=== PATIENT | female | born 1990 | race Caucasian/White ===

== ENCOUNTER 2021-06-03 06:01 | Emergency (ER) | payer BC, SELFPAY ==
[2021-06-03 06:07] VITALS: BP 140/74; PULSE 95; RESP 20; TEMP 36.3; O2SAT 98
[2021-06-03 06:28] LABS: Basophils Percent Auto 0.1 % (0.2-1.2); Eosinophils Absolute Auto 0.1 K/mm3 (0-0.3); Eosinophils Percent Auto 1.4 % (0-4.4); Hematocrit 35.4 % (37.0-47.0); Hemoglobin 12.1 g/dL (12.0-15.0); Immature Granulocyte Absolute 0.04 K/mm3 (0.00-0.031); Immature Granulocyte Percent A 0.5 % (0-0.5); Lymphocytes Absolute Auto 0.45 K/mm3 (0.9-3.2); Lymphocytes Percent Auto 5.6 % (18.3-44.2); Mean Corpuscular HGB Conc 34.2 g/dl (32-36); Mean Corpuscular Hemoglobin 30.7 pg (26-34); Mean Corpuscular Volume 89.8 fl (80-100); Mean Platelet Volume 10.7 fl (7.4-10.4); Monocytes Absolute Auto 0.7 K/mm3 (0.1-0.6); Monocytes Percent Auto 8.2 % (2.6-8.5); Neutrophils Absolute Auto 6.8 K/mm3 (1.3-6.7); Neutrophils Percent Auto 84.2 % (45.5-73.1); Platelet Count Result 216 k/mm3 (150-375); Red Blood Count 3.94 M/mm3 (4.2-5.4); Red Cell Distribution Width 12.6 % (11.5-14.5); White Blood Count 8.1 K/mm3 (4.5-10.0)
[2021-06-03 06:33] LABS: Add Urine Microscopic? YES; Appearance Urine Clear (Clear); Bilirubin Urine Negative (Negative); Blood Urine Negative (Negative); Color Urine Yellow (Yellow); Glucose Urine UA Negative (Negative); Ketones Urine 1+ mg/dL (Negative); Leukocyte Esterase Ur Negative LEU/UL (Negative); Mucus Urine Rare /lpf; Nitrate Urine Negative (Negative); Protein Urine Negative (Negative); Specific Grav Ur 1.024 (1.001-1.035); Squamous Epithelial Cell Urine Many /hpf (Few); WBC Urine 0-3 /hpf
[2021-06-03 06:36] LABS: Alanine Aminotransferase 30 U/L (4-35); Albumin Level 3.9 g/dL (3.5-5.1); Alkaline Phosphatase 76 U/L (38-126); Anion Gap 8 mmol/L (8-16); Aspartate Amino Transferase 34 U/L (14-36); Bilirubin,Total 0.3 mg/dL (0.2-1.3); Blood Urea Nitrogen 6 mg/dL (7-17); Calcium 8.8 mg/dL (8.4-10.2); Carbon Dioxide 22 mmol/L (22-30); Chloride 102 mmol/L (98-107); Estimated Glomerular Filt Rate > 60; Glucose 109 mg/dL (65-110); Lipase 72 U/L (23-300); Potassium 3.7 mmol/L (3.4-5.0); Sodium 132 mmol/L (137-145)
[2021-06-03] MEDS: SODIUM CHLORIDE 0.9% IV 1,000 ML 999 ML IV CONT (07:46)
--- NOTE | 2021-06-03 07:48 | ED.NAVMDI ---
HPI - Nausea/Vomiting/Diarrhea General Chief complaint: Nausea/Vomiting/Diarrhea Stated complaint: n/v/d, headache, fever Time Seen by Provider: 06/03/21 06:25 History of Present Illness HPI Narrative: Patient is a 31-year-old female who presents to the ER with multiple complaints. She is 17 weeks and has had a headache since yesterday. Typically takes ibuprofen but did not due to the . She has tried no pain medication. She does report that she had a fever last night of 100.9 ?F. She has had some nausea and vomiting. No abdominal pain or leakage of fluid or vaginal bleeding. She has felt the baby move. She was recently diagnosed with gestational diabetes. No known sick contacts. Vaccinated against COVID. No loss of taste or smell. Denies sinus congestion or sore throat or postnasal drip. Mild cough Related Data Home Medications Medication Instructions Recorded Confirmed escitalopram oxalate 10 mg tablet 10 mg PO DAILY 06/08/20 05/30/21 azelaic acid 15 % topical gel 1 applic TOPICAL BID 12/22/20 12/22/20 aegnrnvo-hqe-Ji-FA tablet PO 06/03/21 [] Allergies Allergy/AdvReac Type Severity Reaction Status Date / Time Penicillins Allergy Unknown Unknown Verified 06/03/21 06:20 Review of Systems Review of Systems: All systems reviewed & are unremarkable except as noted in HPI and below Constitutional: Constitutional: Denies chills, Reports fatigue and Reports fever(s) ENT: Denies nasal congestion and Denies sore throat Respiratory: Respiratory: Reports cough, Denies dyspnea and Denies wheezing Gastrointestinal: Gastrointestinal: Denies abdominal pain, Denies diarrhea, Reports nausea and Reports vomiting Genitourinary: Genitourinary: Denies abnormal vaginal bleeding, Reports nocturia (Due to ), Denies dysuria and Denies vaginal discharge [facility] Past Medical History Medical History Anxiety Depression Obesity Sleep apnea Coijm-Turcqmzli-Fvjib (WPW) pattern Surgical History Surgical History History of cardiac radiofrequency ablation (RFA) History of colposcopy (~01/30/17) BENIGN ENDOCERVERIVAL TISSUE History of colposcopy (~01/18/16) LGSIL MILD DYPLASIA _ HPV - BENGIN History of gynecological procedure MIRENA IUD INSERTION 07/05/2015 Hx of gynecological procedure (~12/07/19) MIRENA IUD REMOVAL Family History Family History Father Family history of malignant neoplasm of bone Anxiety Depression Mother Diabetes mellitus Hypertension Obesity Grandparent Heart disease Lung cancer Sibling Anxiety Obesity Social History Social History (Updated 05/30/21 @ 09:09 by Geri Sánchez MA) Smoking status: Never smoker Alcohol intake: never Substance use: never 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 HEAD: Normocephalic, atraumatic. CHEST: Clear to auscultation. No respiratory distress. HEART: Regular rate and rhythm. Normal peripheral pulses. ABDOMEN: Soft, nontender, nondistended. EXTREMITIES: Normal range of motion. No edema. SKIN: Warm, dry, no rash. NEURO: Alert and oriented x3. PSYCH: Normal mood and affect. Course Course Emergency Course: Labs unremarkable. Headache and nausea resolved with Tylenol and Phenergan. Discharge home with supportive care. COVID pending Vital Signs Vital signs: Vital Signs Temperature 97.4 F L 06/03/21 06:07 Pulse Rate 95 06/03/21 06:07 Respiratory Rate 20 06/03/21 06:07 Blood Pressure 140/74 06/03/21 06:07 Pulse Oximetry 98 06/03/21 06:07 Temperature 97.4 F L 06/03/21 06:07 Pul
[2021-06-03] MEDS: PROMETHAZINE HCL 25 MG/ML AMPUL 12.5 MG IV PUSH (07:49)
[2021-06-03 10:35] VITALS: PULSE 86; RESP 19; O2SAT 99
[2021-06-03 20:23] LABS: SARS-CoV-2 RNA PCR Positive
== END 2021-06-03 10:40 | disposition home or self-care (01) ==
PROVIDERS: Emergency Medicine; Emergency Provider Emergency Medicine; PCP Family Medicine
DX: O98.512 Other viral diseases complicating pregnancy, second trimester (principal); U07.1 COVID-19; R51.9 Headache, unspecified; O24.419 Gestational diabetes mellitus in pregnancy, unspecified control; O99.342 Other mental disorders complicating pregnancy, second trimester; F41.9 Anxiety disorder, unspecified; F32.A Depression, unspecified; O99.212 Obesity complicating pregnancy, second trimester; E66.9 Obesity, unspecified; O99.352 Diseases of the nervous system complicating pregnancy, second trimester; G47.30 Sleep apnea, unspecified; Z3A.17 17 weeks gestation of pregnancy
CPT/HCPCS: 36415; 80053; 81001; 83690; 85025; 96361; 96374; 96375; 99284; C9803; J0131; J2550; J7030; U0003; U0005

== ENCOUNTER 2021-08-15 12:52 | Outpatient (CLI) | payer BC, SELFPAY ==
[2021-08-15 13:16] VITALS: BP 108/56; PULSE 81
[2021-08-15 13:31] VITALS: BP 118/70; PULSE 72
[2021-08-15 13:39] LABS: Basophils Percent Auto 0.3 % (0.2-1.2); Eosinophils Absolute Auto 0.3 K/mm3 (0-0.3); Hematocrit 35.2 % (37.0-47.0); Hemoglobin 11.5 g/dL (12.0-15.0); Immature Granulocyte Absolute 0.04 K/mm3 (0.00-0.031); Immature Granulocyte Percent A 0.4 % (0-0.5); Lymphocytes Absolute Auto 1.97 K/mm3 (0.9-3.2); Lymphocytes Percent Auto 18.9 % (18.3-44.2); Mean Corpuscular HGB Conc 32.7 g/dl (32-36); Mean Corpuscular Hemoglobin 29.6 pg (26-34); Mean Corpuscular Volume 90.5 fl (80-100); Mean Platelet Volume 11.5 fl (7.4-10.4); Monocytes Absolute Auto 0.7 K/mm3 (0.1-0.6); Monocytes Percent Auto 6.9 % (2.6-8.5); Neutrophils Absolute Auto 7.3 K/mm3 (1.3-6.7); Neutrophils Percent Auto 70.5 % (45.5-73.1); Platelet Count Result 253 k/mm3 (150-375); Red Blood Count 3.89 M/mm3 (4.2-5.4); Red Cell Distribution Width 12.9 % (11.5-14.5); White Blood Count 10.4 K/mm3 (4.5-10.0)
[2021-08-15 13:45] VITALS: BP 113/67; PULSE 80
[2021-08-15 13:50] LABS: Add Urine Microscopic? YES; Alanine Aminotransferase 17 U/L (4-35); Albumin Level 3.3 g/dL (3.5-5.1); Alkaline Phosphatase 92 U/L (38-126); Anion Gap 5 mmol/L (8-16); Appearance Urine Cloudy (Clear); Aspartate Amino Transferase 18 U/L (14-36); Bacteria Urine Trace /hpf; Bilirubin Urine Negative (Negative); Bilirubin,Total < 0.1 mg/dL (0.2-1.3); Blood Urea Nitrogen 8 mg/dL (7-17); Blood Urine 2+ (Negative); Calcium 8.5 mg/dL (8.4-10.2); Carbon Dioxide 23 mmol/L (22-30); Chloride 105 mmol/L (98-107); Color Urine Yellow (Yellow); Estimated Glomerular Filt Rate > 60; Glucose 116 mg/dL (65-110); Glucose Urine UA Negative (Negative); Ketones Urine Negative (Negative); Leukocyte Esterase Ur Negative LEU/UL (NEGATIVE); Mucus Urine Rare /lpf; Nitrate Urine Negative (Negative); Potassium 3.5 mmol/L (3.4-5.0); Protein Urine Negative (Negative); RBC Urine >75 /hpf (0-2); Sodium 133 mmol/L (137-145); Specific Grav Ur 1.013 (1.001-1.035); Squamous Epithelial Cell Urine Many /hpf (Few); Uric Acid 3.3 mg/dL (2.5-7.5); Urobilinogen Urine Negative mg/dL (<2.0); WBC Urine 0-3 /hpf (0-3)
[2021-08-15 13:52] LABS: Creatinine Urine 76.8 mg/dL; Total Protein Urine Random 15 mg/dL
[2021-08-15 14:00] VITALS: BP 105/64; PULSE 70
== END 2021-08-15 14:02 | disposition home or self-care (01) ==
LOC: ANHOBOP 12:57 → ANHLDR 12:58
PROVIDERS: PCP Family Medicine; Visit Provider Obstetrics & Gynecology
DX: O13.9 Gestational [pregnancy-induced] hypertension without significant proteinuria, unspecified trimester (principal); Z3A.00 Weeks of gestation of pregnancy not specified
CPT/HCPCS: 36415; 59025; 80053; 81001; 82570; 84156; 84550; 85025; 87086; 99199

== ENCOUNTER 2021-09-16 11:18 | Outpatient (RCR) | payer BC, SELFPAY ==
[2021-09-16 12:09] VITALS: BP 119/65; PULSE 77
== END 2021-10-20 10:16 | disposition home or self-care (01) ==
LOC: ANHOBOP 11:18
PROVIDERS: PCP Family Medicine; Visit Provider Obstetrics & Gynecology
DX: O24.419 Gestational diabetes mellitus in pregnancy, unspecified control (principal); Z3A.32 32 weeks gestation of pregnancy
CPT/HCPCS: 59025

== ENCOUNTER 2021-10-18 13:59 | Inpatient (IN) | payer BC, SELFPAY ==
[2021-10-18] VITALS (12 sets, daily range): BP systolic 116–134; BP diastolic 54–76; PULSE 68–80; TEMP 36.6; BMI 43.2
--- NOTE | 2021-10-18 13:59 | LDADM ---
This patient, Maria Teresa Petty, was admitted to Labor/Delivery/Recovery 103 on 10/18/21 at 13:59. Plans for labor, pain management and were discussed with patient. Patient/family oriented to hospital policies and general routines including ID bracelet, bed and alarms, visiting hours, pain management, procedures, bathroom and other care routines, personal items, smoking policy, room service/diet and guest tray routines, security routines, and visiting hours. Patient/Family are encouraged to report perceived risks to care and to ask questions if they do not understand what they are told or what they should do. See OBIX for further documentation.
--- OUTSIDE RECORDS SUMMARY | 2021-10-18 14:09 | XMS_ITS ---
:1990 Author Care Team Providers Name Role Phone CLAUDIA DAS Primary Care Provider [phone] Allergies Code Code System Name Reaction Severity Status Onset Penicillins Rash ? Active ? Medications Name Status Start Date Stop Date ? ? alprazolam 0.25 mg tablet Completed ? 2019 azelaic acid 15 % topical gel Active ? No t available azithromycin 250 mg tablet Unknown ? Not a vailable buspirone 5 mg tablet Active ? Not availa ble ciprofloxacin 500 mg tablet Unknown ? Not available citalopram 10 mg tablet Completed ? 12/26/19 17 clomiphene citrate 50 mg tablet Completed ? 03/20/2021 Diclegis 10 mg-10 mg tablet,delayed release Completed ? 12/25/2016 TAKE 1 TABLET BY MOUTH EVERY MORNING, 1 TABLET IN THE AFTERNOON, AND 2 TABLETS AT BEDTIME doxycycline hyclate 100 mg tablet Completed ? 03/20/2021 escitalopram 10 mg tablet Active ? Not av ailable famotidine 20 mg tablet Unknown ? Not avai lable hydrocodone 5 mg-acetaminophen 325 mg tablet Unknown ? Not available ibuprofen 400 mg tablet Unknown ? Not avai lable Macrobid 100 mg capsule Completed ? 01/31/20 17 Take 1 capsule every 12 hours by oral route for 5 days. Mirena 20 mcg/24 hours (7 yrs) 52 mg intrauterine device Complet ed ? 12/07/2019 Take 1 device by intrauterine route. montelukast 10 mg tablet Completed ? 017 ondansetron 4 mg disintegrating tablet Unknown ? Not available ondansetron HCl 4 mg tablet Unknown ? Not available phenazopyridine 200 mg tablet Unknown ? No t available prazosin 1 mg capsule Completed ? 03/20/2021 prednisone 20 mg tablet Unknown ? Not avai lable TAKE 3 TABLETS BY MOUTH DAILY
[2021-10-18 15:17] LABS: Basophils Percent Auto 0.3 % (0.2-1.2); Eosinophils Absolute Auto 0.3 K/mm3 (0-0.3); Eosinophils Percent Auto 2.4 % (0-4.4); Hematocrit 34.5 % (37.0-47.0); Hemoglobin 11.3 g/dL (12.0-15.0); Immature Granulocyte Absolute 0.06 K/mm3 (0.00-0.031); Immature Granulocyte Percent A 0.6 % (0-0.5); Lymphocytes Absolute Auto 2.05 K/mm3 (0.9-3.2); Lymphocytes Percent Auto 18.8 % (18.3-44.2); Mean Corpuscular HGB Conc 32.8 g/dl (32-36); Mean Corpuscular Hemoglobin 28.4 pg (26-34); Mean Corpuscular Volume 86.7 fl (80-100); Mean Platelet Volume 11.7 fl (7.4-10.4); Monocytes Absolute Auto 0.8 K/mm3 (0.1-0.6); Monocytes Percent Auto 7.3 % (2.6-8.5); Neutrophils Absolute Auto 7.7 K/mm3 (1.3-6.7); Neutrophils Percent Auto 70.6 % (45.5-73.1); Platelet Count Result 280 k/mm3 (150-375); Red Blood Count 3.98 M/mm3 (4.2-5.4); Red Cell Distribution Width 13.6 % (11.5-14.5); White Blood Count 10.9 K/mm3 (4.5-10.0)
[2021-10-18 15:29] LABS: Alanine Aminotransferase 13 U/L (6-35); Albumin Level 3.3 g/dL (3.5-5.1); Alkaline Phosphatase 172 U/L (38-126); Anion Gap 3 mmol/L (8-16); Aspartate Amino Transferase 19 U/L (14-36); Bilirubin,Total 0.1 mg/dL (0.2-1.3); Blood Urea Nitrogen 4 mg/dL (7-17); Calcium 8.3 mg/dL (8.4-10.2); Carbon Dioxide 25 mmol/L (22-30); Chloride 107 mmol/L (98-107); Estimated CRCL calculation 164 ml/min; Estimated Glomerular Filt Rate > 60; Glucose 81 mg/dL (65-110); Potassium 3.1 mmol/L (3.4-5.0); Sodium 135 mmol/L (137-145); Uric Acid 4.3 mg/dL (2.5-7.5)
[2021-10-18] MEDS: DINOPROSTONE 10 MG VAG INSERT VAGINAL (17:07)
[2021-10-18] MEDS: INSULIN ASPART (*BKC) 100 UNITS/ML SUB-Q (17:12)
--- NOTE | 2021-10-18 18:34 | PM.IMHP ---
H&P: HPI History of Present Illness Date/Time: 10/18/21 18:34 Chief Complaint: elevated blood pressures Narrative: Maria Teresa is a 31yo @ 37.0wks (AUDREY 11/08/21) who presented to L&D per [facility]'s instructions for IOL. She has a questionable h/o CHTN vs GHTN; but over the last week, her BP's have been increasing to moderate to severe range; has had some RUQ pain as well. She also has uncontrolled GDM (likely pregestational DM) and is on high levels of insulin even though she follows a strict diet. She has been undergoing twice weekly testing. She reports good movements. No ctx, vb, or LOF. Review of Systems Review of Systems: All systems reviewed & are unremarkable except as noted in HPI and below (HPI) [facility] Past Medical History Medical History Anxiety Depression Lactating mother Obesity Sleep apnea Upvrm-Yoztanrap-Nsdrd (WPW) pattern Surgical History Surgical History History of cardiac radiofrequency ablation (RFA) History of colposcopy (~01/30/17) BENIGN ENDOCERVERIVAL TISSUE History of colposcopy (~01/18/16) LGSIL MILD DYPLASIA _ HPV - BENGIN History of gynecological procedure MIRENA IUD INSERTION 07/05/2015 Hx of gynecological procedure (~12/07/19) MIRENA IUD REMOVAL Family History Family History Father Family history of malignant neoplasm of bone Anxiety Depression Mother Diabetes mellitus Hypertension Obesity Grandparent Heart disease Lung cancer Sibling Anxiety Obesity Social History Social History Smoking status: Never smoker Alcohol intake: never Substance use: never 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 Gender identity (if verbalized by the patient): Female Sexual Orientation (if Verbalized by the Patient): Straight or Heterosexual Spiritual care concerns: No Meds Home Medications and Allergies Home Medications Medication Instructions Recorded Confirmed Type azelaic acid 15 % topical gel 1 applic topical BID 12/22/20 10/18/21 History khmbgvin-pkm-Ml-FA 1 mg 1 tablet PO DAILY 06/03/21 10/18/21 History tablet aspirin 81 mg tablet,delayed 162 mg PO ONCE 06/23/21 10/18/21 History release (Adult Aspirin Regimen) insulin detemir U-100 100 unit/mL 22 unit subcut QAM 07/31/21 10/18/21 History (3 mL) subcutaneous pen insulin aspar prot-insulin aspart 4 unit subcut DIRECTED 09/25/21 10/18/21 History 100 unit/mL (70-30) subcutaneous pen (Novolog Mix 70-30FlexPen U-100) buspirone 5 mg tablet 5 mg PO BID 10/18/21 10/18/21 History escitalopram oxalate 10 mg tablet 10 mg PO DAILY 10/18/21 10/18/21 History insulin detemir U-100 100 unit/mL 86 unit subcut QHS 10/18/21 10/18/21 History (3 mL) subcutaneous pen (Levemir FlexTouch U-100 Insulin) Allergies Allergy/AdvReac Type Severity Reaction Status Date / Time Penicillins Allergy Unknown Unknown Verified 10/11/21 10:28 Vital Signs Vital Signs - 24 hr 10/18/21 15:09 10/18/21 15:33 10/18/21 17:15 Pulse Rate 71 68 73 Blood Pressure 122/76 130/71 131/54 L 10/18/21 17:16 10/18/21 17:30 10/18/21 17:46 Pulse Rate 72 74 80 Blood Pressure 120/71 130/69 116/59 L 10/18/21 18:00 10/18/21 18:15 10/18/21 18:30 Pulse Rate 71 74 69 Blood Pressure 127/75 126/71 124/70 Exam Const: General: cooperative, comfortable and no acute distress Resp: Effort & Inspection: normal respiratory effort Cardio: Rate: regular rate GI: GI Palp: Yes Soft to palpation : Other: FHT's: 120's/ mod giorgio/ + accels/ no decels - cat 1 TOCO: no ctx's Cervix: 1/thick/high Membranes: intact Presentation: cephalic Neuro: General: patient oriented x3 H&P: Results Labs Labs: Short CBC 10/18/21 Range/Units 15:
[2021-10-18 21:08] LABS: Glucose Point of Care 127 mg/dl (65-105)
[2021-10-18] MEDS: INSULIN GLARGINE (*BKC) 100 UNITS/ML 86 UNITS SUB-Q (22:05)
[2021-10-19] VITALS (67 sets, daily range): BP systolic 100–143; BP diastolic 57–96; PULSE 65–95; RESP 18; TEMP 36.2–37.2; O2SAT 89–100
[2021-10-19 01:15] LABS: Glucose Point of Care 81 mg/dl (65-105)
[2021-10-19 05:08] LABS: Glucose Point of Care 87 mg/dl (65-105)
[2021-10-19] MEDS: OXYTOCIN 30 UNITS/NS 500 ML 30 UNITS/500 ML BAG IV CONT (05:37)
[2021-10-19] MEDS: LACTATED RINGERS 1,000 ML 125 ML IV CONT ×2 (05:37→07:55)
--- NOTE | 2021-10-19 06:16 | WPDANESEPP ---
Anes - Eval Pre Procedure Procedure: labor epidural Date/Time: 10/19/21 06:16 Surgeon: stephanie Preop Diagnosis: pain during labor Pre Op Diagnosis: IOL Patient Data Age: 31 Gender: F Height: 1.73 m Weight: 129 kg Last Vital Signs Temp 36.2 C L 10/19/21 03:15 Pulse 85 10/19/21 06:16 BP 134/81 10/19/21 06:16 O2 Del Method Room Air 10/18/21 22:00 Allergies Allergy/AdvReac Type Severity Reaction Status Date / Time Penicillins Allergy Unknown Unknown Verified 10/11/21 10:28 Home Medications Medication Instructions Recorded Confirmed Type azelaic acid 15 % topical gel 1 applic topical BID 12/22/20 10/18/21 History xxmypwce-jfu-Zw-FA 1 mg 1 tablet PO DAILY 06/03/21 10/18/21 History tablet aspirin 81 mg tablet,delayed 162 mg PO ONCE 06/23/21 10/18/21 History release (Adult Aspirin Regimen) insulin detemir U-100 100 unit/mL 22 unit subcut QAM 07/31/21 10/18/21 History (3 mL) subcutaneous pen insulin aspar prot-insulin aspart 4 unit subcut DIRECTED 09/25/21 10/18/21 History 100 unit/mL (70-30) subcutaneous pen (Novolog Mix 70-30FlexPen U-100) buspirone 5 mg tablet 5 mg PO BID 10/18/21 10/18/21 History escitalopram oxalate 10 mg tablet 10 mg PO DAILY 10/18/21 10/18/21 History insulin detemir U-100 100 unit/mL 86 unit subcut QHS 10/18/21 10/18/21 History (3 mL) subcutaneous pen (Levemir FlexTouch U-100 Insulin) Laboratory Tests 10/18/21 10/18/21 10/18/21 15:01 15:01 15:01 WBC 10.9 K/mm3 H K/mm3 (4.5-10.0) RBC 3.98 M/mm3 L M/mm3 (4.2-5.4) Hgb 11.3 g/dL L g/dL (12.0-15.0) Hct 34.5 % L % (37.0-47.0) MCV 86.7 fl fl (80-100) MCH 28.4 pg pg (26-34) MCHC 32.8 g/dl g/dl (32-36) RDW 13.6 % % (11.5-14.5) Plt Count 280 k/mm3 k/mm3 (150-375) MPV 11.7 fl H fl (7.4-10.4) Immature Gran % (Auto) 0.6 % H % (0-0.5) Neut % (Auto) 70.6 % % (45.5-73.1) Lymph % (Auto) 18.8 % % (18.3-44.2) [place] % (Auto) 7.3 % % (2.6-8.5) Eos % (Auto) 2.4 % % (0-4.4) Baso % (Auto) 0.3 % % (0.2-1.2) Lymph # (Auto) 2.05 K/mm3 K/mm3 (0.9-3.2) [place] # (Auto) 0.8 K/mm3 H K/mm3 (0.1-0.6) Eos # (Auto) 0.3 K/mm3 K/mm3 (0-0.3) Baso # (Auto) 0.0 K/mm3 K/mm3 (0.0-0.1) Abs Immat Gran (auto) 0.06 K/mm3 H K/mm3 (0.00-0.031) Absolute Neuts (auto) 7.7 K/mm3 H K/mm3 (1.3-6.7) Absolute Nucleated RBC 0.0 K/mm3 K/mm3 (0.0-0.012) Nucleated RBC % 0.0 % % (0.0-0.2) Sodium 135 mmol/L L mmol/L (137-145) Potassium 3.1 mmol/L L mmol/L (3.4-5.0) Chloride 107 mmol/L mmol/L (98-107) Carbon Dioxide 25 mmol/L mmol/L (22-30) Anion Gap 3 mmol/L L mmol/L (8-16) BUN 4 mg/dL L mg/dL (7-17) Creatinine 0.60 mg/dL L mg/dL (0.7-1.0) Estim Creat Clear Calc 164 ml/min ml/min Estimated GFR > 60 (59 - ) Glucose 81 mg/dL mg/dL (65-110) POC Capillary Glucose Uric Acid Cancelled 4.3 mg/dL mg/dL (2.5-7.5) Calcium 8.3 mg/dL L mg/dL (8.4-10.2) Total Bilirubin 0.1 mg/dL L mg/dL (0.2-1.3) AST 19 U/L U/L (14-36) ALT 13 U/L U/L (6-35) Alkaline Phosphatase 172 U/L H U/L (38-126) Total Protein 6.0 g/dL L g/dL (6.3-8.2) Albumin 3.3 g/dL L g/dL (3.5-5.1) RPR Blood Type Antibody Screen 10/18/21 10/18/21 10/18/21 15:01 15:01 21:06 WBC RBC Hgb Hct MCV MCH MCHC RDW Plt Count MPV Immature Gran % (Auto) Neut % (Auto) Lymph % (Auto) [place] % (Auto)
[2021-10-19] MEDS: ONDANSETRON INJ 4 MG/2 ML VIAL IV PUSH ×2 (07:21→13:04)
[2021-10-19 07:29] LABS: Rapid Plasma Reagin Non-Reactive (NonReactive)
[2021-10-19] MEDS: fentaNYL CITRATE INJ (*CRX) 100 MCG/2 ML VIAL 50 MCG IV PUSH (07:54)
[2021-10-19 09:23] LABS: Glucose Point of Care 91 mg/dl (65-105)
[2021-10-19 13:18] LABS: Glucose Point of Care 78 mg/dl (65-105)
--- NOTE | 2021-10-19 14:30 | P.HP_ITS ---
Obstetrics - Admit Note Admission Note: record reviewed. No pertinent additions to the history and/or any subsequent changes in the physical findings that are not consistent with the expected course of the were found. Additions to the history and/or subsequent changes in the physical findings follow. 31-year-old 2 para 1 female presents at 37 weeks from [facility] office due to elevated blood pressure and uncontrolled diabetes. For presents for induction of labor. records otherwise on the chart.
--- NOTE | 2021-10-19 14:30 | WPDHPUPDATE1 ---
History and Physical Update Update Date/Time: 10/19/21 14:30 History and Physical has been reviewed, including an updated exam of the patient. There are NO changes in the patient's condition. Risks, benefits, and alternatives have been discussed and questions answered. Patient agrees to proceed with procedure.
--- NOTE | 2021-10-19 14:31 | PM.OBPRVD ---
OB - Delivery Note Procedure Events: Chronic Hypertension and Gestational Diabetes Induction method: Per Cervidil Protocol Delivery augmentation: Rupture of Membranes and Pitocin Delivery monitor: External FHT and External Uterine Route of delivery: Episiotomy description: None Laceration Description: None Specimen: Yes Quantitative Blood Loss (ml): 300 Anesthesia type: Epidural Disposition: Floor Narrative: Patient prepped in the usual manner for this procedure. Maternal expulsive efforts readily delivered vertex on rest of baby without difficulty. Cord clamped cut placenta delivered spontaneously. Cervix vagina vulva were inspected with no lacerations or tears. Uterus was well contracted hemostatic. [place] Baby Weeks of gestation at delivery: 37 Infant gender: Female Weight (pounds): 6 Weight (ounces): 7 presentation: vertex Placenta delivery description: Spontaneous Cord Vessel Description: 3 Vessels score one minute: 8 score five minutes: 9 AMG Delivery Billing Delivery Delivery: Delivery Charge
[2021-10-19] MEDS: OXYTOCIN 30 UNITS/NS 500 ML 30 UNITS/500 ML BAG 125 UNITS IV CONT (14:54)
--- NOTE | 2021-10-19 17:28 | OBPPTRN ---
Patient transferred to post room # 292 via wheelchair. Oriented to unit, room, information board, rooming in, admission packet and security measures. Patient verbalizes understanding.
[2021-10-19] MEDS: LANOLIN (LANSINOH) 7.5 GM CREAM 1 APPLIC TOPICAL (22:44)
[2021-10-19] MEDS: busPIRone HCL 5 MG TABLET PO (22:44)
[2021-10-19] MEDS: IBUPROFEN 600 MG TABLET PO (22:45)
[2021-10-19] MEDS: ACETAMINOPHEN 325 MG TABLET 650 MG PO (22:45)
[2021-10-20 04:00] VITALS: BP 121/71; PULSE 85; RESP 18; TEMP 36.7
[2021-10-20 05:19] LABS: Hematocrit 32.3 % (37.0-47.0); Hemoglobin 10.4 g/dL (12.0-15.0)
[2021-10-20] MEDS: MULTIVIT/MIN/PREN/FOL AC/IRON TABLET 1 TAB PO (07:38)
[2021-10-20] MEDS: DOCUSATE SODIUM 100 MG CAPSULE PO (07:38)
[2021-10-20] MEDS: IBUPROFEN 600 MG TABLET PO ×2 (07:39→19:26)
[2021-10-20] MEDS: ACETAMINOPHEN 325 MG TABLET 650 MG PO ×2 (07:39→19:26)
[2021-10-20 07:58] VITALS: BP 124/74; PULSE 82; RESP 18; TEMP 36.1; O2SAT 98
[2021-10-20] MEDS: busPIRone HCL 5 MG TABLET PO (08:54)
[2021-10-20] MEDS: ESCITALOPRAM OXALATE 10 MG TABLET PO (08:54)
--- NOTE | 2021-10-20 10:33 | WPDANLDPN2 ---
Anes-Prog Note L&D Date/Time: 10/20/21 10:33 Comfortable throughout: labor and delivery Neuraxial method: epidural Epidural/Spinal procedure site: clean & non-tender Neuro status: Neuro function grossly intact. Cardiovascular status: normal Respiratory status: normal Airway patency: baseline Mental status: baseline Post-Op hydration status: normal Vital Signs: Last Vital Signs Temp 36.1 C L 10/20/21 07:58 Pulse 82 10/20/21 07:58 Resp 18 10/20/21 07:58 BP 124/74 10/20/21 07:58 Pulse Ox 98 10/20/21 07:58 O2 Del Method Room Air 10/20/21 07:58 Pain score (VAS): 0 I/O: Intake & Output 10/19/21 10/20/21 10/20/21 23:59 07:59 15:59 Intake Total 500 2300 350 Output Total 85 550 Balance 415 1750 350 Post-procedural complaints: none Patient feedback: Patient satisfied with anesthetic care.
--- NOTE | 2021-10-20 12:00 | PM.OBDSVD ---
DS: Admitting Diagnosis Discharge Date 10/20/2021 Admitting Diagnosis OB - DS: Summary OB Procedures : NST and PIH Mgmt OB Procedures Intrapartum: Spontaneous Vag Delivery OB Procedures: : None Time Spent with Patient Time attestation: Total time spent providing and/or coordinating discharge services: DS: Data Data Completed and Pending Pending studies at discharge: Pending at discharge 10/19/21 14:20 Surgical [PTH] Routine Labs on day of discharge: Labs from last 24 hours 10/20/21 10/19/21 03:22 13:03 Hgb 10.4 L Hct 32.3 L POC Capillary Glucose 78 Discharge Plan Discharge Discharging Clinician: Rajinder Law Patient Disposition: Home, Self-Care Activity: as tolerated Diet: as tolerated Patient Instructions: Antibiotic Form Stand Alone Forms: General Discharge Information Follow-up/Referrals: Rajinder Law MD [Physician] - 3 Weeks Discharge Medications: New ibuprofen 600 mg Tablet 600 mg PO Q6H PRN (Reason: Cramping) Qty: 30 0RF Continued azelaic acid 15 % gel 1 applic topical BID 1 mg Tablet 1 tablet PO DAILY buspirone 5 mg tablet 5 mg PO BID escitalopram oxalate 10 mg tablet 10 mg PO DAILY Discontinued insulin detemir U-100 100 unit/mL (3 mL) insulin pen 22 unit subcut QAM insulin asp prt-insulin aspart [Novolog Mix 70-30FlexPen U-100] 100 unit/mL (70-30) insulin pen 4 unit subcut DIRECTED Rx Instructions: 4 units with lunch aspirin [Adult Aspirin Regimen] 81 mg tablet,delayed release (DR/EC) 162 mg PO ONCE Levemir FlexTouch U-100 Insuln 100 unit/mL (3 mL) insulin pen 86 unit SUBCUT QHS Date of admission: 10/18/21 13:59 Primary Care Provider: Michelle Go Admitting Provider: Rajinder Law Attending physician on admission: Rajinder Law Condition: Stable
[2021-10-20 12:48] VITALS: BP 117/80; PULSE 80; RESP 18; TEMP 36.7; O2SAT 97
[2021-10-23 10:58] VITALS: BP 133/77; PULSE 56; RESP 20; TEMP 37; O2SAT 98
== END 2021-10-20 19:45 | disposition home or self-care (01) | DRG 805 ==
LOC: ANHLDR 14:07 → ANHOB2 10-19 17:35
PROVIDERS: Admitting Provider Obstetrics & Gynecology; PCP Family Medicine; Visit Provider Obstetrics & Gynecology
DX: O10.92 Unspecified pre-existing hypertension complicating childbirth (principal); O99.42 Diseases of the circulatory system complicating childbirth; Z37.0 Single live birth; Z3A.37 37 weeks gestation of pregnancy; O24.424 Gestational diabetes mellitus in childbirth, insulin controlled; I45.6 Pre-excitation syndrome
CPT/HCPCS: 36415; 80053; 82948; 84550; 85014; 85018; 85025; 86592; 86850; 86900; 86901; 88307; A9270; J1815; J2405; J2590; J2795; J3010; J7120

== ENCOUNTER 2022-12-11 09:33 | Outpatient (CLI) | payer BC, SELFPAY ==
[2022-12-11 10:21] LABS: Kit Draw Collected
== END 2022-12-11 09:34 | disposition home or self-care (01) ==
LOC: ANHGOSHLAB 09:36
PROVIDERS: PCP Family Medicine; Visit Provider Family Medicine
DX: E55.9 Vitamin D deficiency, unspecified (principal); E78.5 Hyperlipidemia, unspecified; I10 Essential (primary) hypertension; Z79.899 Other long term (current) drug therapy
CPT/HCPCS: 36415

== ENCOUNTER 2023-06-18 09:19 | Outpatient (RCR) | payer BC, SELFPAY ==
[2023-06-18 09:54] VITALS: BMI 42.9
[2023-06-18 10:16] VITALS: BMI 42.9
== END 2023-09-09 09:40 | disposition home or self-care (01) ==
LOC: ANHDMC 09:19
PROVIDERS: PCP Family Medicine
DX: O24.414 Gestational diabetes mellitus in pregnancy, insulin controlled (principal); Z3A.00 Weeks of gestation of pregnancy not specified; Z71.3 Dietary counseling and surveillance
CPT/HCPCS: 97802

== ENCOUNTER 2023-12-08 08:58 | Outpatient (RCR) | payer BC, SELFPAY ==
[2023-11-29 11:42] VITALS: BP 119/66; PULSE 78
[2023-11-29 11:47] VITALS: BP 119/66; PULSE 78
[2023-12-08 10:01] VITALS: BP 115/66; PULSE 78
== END 2023-12-31 13:26 | disposition home or self-care (01) ==
LOC: ANHOBOP 08:58
PROVIDERS: PCP Family Medicine; Visit Provider Obstetrics & Gynecology
DX: O36.8190 Decreased fetal movements, unspecified trimester, not applicable or unspecified (principal); Z3A.37 37 weeks gestation of pregnancy; Z3A.38 38 weeks gestation of pregnancy
CPT/HCPCS: 59025

== ENCOUNTER 2023-12-10 05:53 | Inpatient (IN) | payer BC, SELFPAY ==
[2023-12-10] VITALS (138 sets, daily range): BP systolic 97–148; BP diastolic 39–117; PULSE 56–92; RESP 16–17; TEMP 36.2–36.9; O2SAT 93–100; BMI 45.9
[2023-12-10 06:47] LABS: Basophils Percent Auto 0.4 % (0.2-1.2); Eosinophils Absolute Auto 0.3 K/mm3 (0-0.3); Eosinophils Percent Auto 3.5 % (0-4.4); Hematocrit 32.2 % (37.0-47.0); Hemoglobin 10.3 g/dL (12.0-15.0); Immature Granulocyte Percent A 1.1 % (0-0.5); Lymphocytes Absolute Auto 2.22 K/mm3 (0.9-3.2); Lymphocytes Percent Auto 23.3 % (18.3-44.2); Mean Corpuscular Hemoglobin 27.6 pg (26-34); Mean Corpuscular Volume 86.3 fl (80-100); Mean Platelet Volume 11.9 fl (7.4-10.4); Monocytes Absolute Auto 0.6 K/mm3 (0.1-0.6); Monocytes Percent Auto 6.2 % (2.6-8.5); Neutrophils Absolute Auto 6.2 K/mm3 (1.3-6.7); Neutrophils Percent Auto 65.5 % (45.5-73.1); Nucleated Red Blood Cells Perc 0.2 % (0.0-0.2); Platelet Count Result 246 k/mm3 (150-375); Red Blood Count 3.73 M/mm3 (4.2-5.4); Red Cell Distribution Width 13.5 % (11.5-14.5); White Blood Count 9.5 K/mm3 (4.5-10.0)
--- NOTE | 2023-12-10 06:50 | LDADM ---
This patient, Maria Teresa Petty, was admitted to Labor/Delivery/Recovery 107 on 12/10/23 at 05:53. Plans for labor, pain management and were discussed with patient. Patient/family oriented to hospital policies and general routines including ID bracelet, bed and alarms, visiting hours, pain management, procedures, bathroom and other care routines, personal items, smoking policy, room service/diet and guest tray routines, security routines, and visiting hours. Patient/Family are encouraged to report perceived risks to care and to ask questions if they do not understand what they are told or what they should do. See OBIX for further documentation.
--- NOTE | 2023-12-10 07:15 | PM.OBPNLAB ---
Pain Control Date/time seen: 12/10/23 07:15 Pain control: tolerating well Pelvic Exam Dilation (cm): 2 Effacement (%): 70 station: -3 Amniotic membrane status: Intact Comments: AROM for scant amount of clear fluid Contractions Monitor mode: External Contraction pattern: Absent Status status: Category l Assessment and Plan Assessment: induction ongoing Plan: begin patient augmentation Comments: AROM, will initial pitocin. continuous EFM
[2023-12-10] MEDS: LACTATED RINGERS 1,000 ML 125 ML IV CONT (07:29)
[2023-12-10] MEDS: OXYTOCIN 30 UNITS/NS 500 ML 30 UNITS/500 ML BAG IV CONT (07:29)
[2023-12-10 07:37] LABS: Glucose Point of Care 118 mg/dl (65-105)
[2023-12-10 07:49] LABS: HIV 1/2 Ab P24 Ag Result Negative (Negative)
[2023-12-10 08:07] LABS: Rapid Plasma Reagin Non-Reactive (NonReactive)
--- NOTE | 2023-12-10 09:06 | WPDANESEPPF ---
Anes - Initial Pre Proc Eval Procedure: labor epidural Date/Time: 12/10/23 09:06 Surgeon: Rajinder Law MD Pre Op Diagnosis: labor pain Pre Op Diagnosis: IOL Patient Data Age: 33 Gender: F Height: 1.73 m Weight: 137 kg Last Vital Signs Temp 36.2 C L 12/10/23 07:30 Pulse 65 12/10/23 09:02 BP 119/58 L 12/10/23 09:02 Pulse Ox 98 12/10/23 09:04 O2 Del Method Room Air 12/10/23 06:46 Allergies Allergy/AdvReac Type Severity Reaction Status Date / Time Penicillins Allergy Unknown Unknown Verified 12/04/23 10:27 Home Medications Medication Instructions Recorded Confirmed Type aspirin 81 mg tablet,delayed 162 mg PO DAILY 06/11/23 12/10/23 History release (Adult Low Dose Aspirin) buspirone 5 mg tablet 5 mg PO BID #180 tabs 09/09/23 12/10/23 Rx escitalopram oxalate 20 mg tablet 20 mg PO DAILY #90 tabs 11/19/23 12/10/23 Rx azelaic acid 15 % topical gel 1 applic topical DAILY 11/21/23 12/04/23 History prenat.vits,cristine,wpt-suib-mjoqy 1 tablet PO DAILY 11/21/23 12/10/23 History insulin NPH isoph U-100 human 100 28 unit subcut QAM 11/25/23 12/10/23 History unit/mL (3 mL) subcutaneous pen (Novolin N FlexPen) insulin NPH isoph U-100 human 100 30 unit subcut HS 11/29/23 12/10/23 History unit/mL (3 mL) subcutaneous pen (Novolin N FlexPen) Laboratory Tests 12/10/23 12/10/23 06:18 07:33 WBC 9.5 K/mm3 (4.5-10.0) RBC 3.73 L M/mm3 (4.2-5.4) Hgb 10.3 L g/dL (12.0-15.0) Hct 32.2 L % (37.0-47.0) MCV 86.3 fl (80-100) MCH 27.6 pg (26-34) MCHC 32.0 g/dl (32-36) RDW 13.5 % (11.5-14.5) Plt Count 246 k/mm3 (150-375) MPV 11.9 H fl (7.4-10.4) Immature Gran % (Auto) 1.1 H % (0-0.5) Neut % (Auto) 65.5 % (45.5-73.1) Lymph % (Auto) 23.3 % (18.3-44.2) [place] % (Auto) 6.2 % (2.6-8.5) Eos % (Auto) 3.5 % (0-4.4) Baso % (Auto) 0.4 % (0.2-1.2) Lymph # (Auto) 2.22 K/mm3 (0.9-3.2) [place] # (Auto) 0.6 K/mm3 (0.1-0.6) Eos # (Auto) 0.3 K/mm3 (0-0.3) Baso # (Auto) 0.0 K/mm3 (0.0-0.1) Abs Immat Gran (auto) 0.10 H K/mm3 (0.00-0.031) Absolute Neuts (auto) 6.2 K/mm3 (1.3-6.7) Absolute Nucleated RBC 0.020 H K/mm3 (0.0-0.012) Nucleated RBC % 0.2 % (0.0-0.2) POC Capillary Glucose 118 H mg/dl (65-105) RPR Non-reactive (NonReactive) HIV 1&2 Ab/P24 Ag 4thGn Negative (Negative) Blood Type A Positive Antibody Screen Negative Patient hx anesthesia problems: none Family hx anesthesia problems: none Results Review: All pre-operative results and documents have been reviewed as part of the pre-operative evaluation. [facility] Past Medical History Medical History Abnormal Pap smear of cervix 12/05/2015- lgsil mild dyplasia +hpv- 12/25/2016 lgsil +hpv Anxiety Depression Encounter for insertion of progestin-releasing intrauterine contraceptive device (IUD) Encounter for IUD removal 12/07/19 Mirena removal Encounter for IUD removal Encounter for screening examination for sexually transmitted disease HPV in female Hx gestational diabetes Lactating mother Obesity induced hypertension Sleep apnea Izvet-Dnvrqbmhe-Uesed (WPW) pattern Surgical History Surgical History History of cardiac radiofrequency ablation (RFA) (~2004) History of colposcopy (01/30/17) BENIGN ENDOCERVERIVAL TISSUE History of colposcopy (01/18/16) LGSIL MILD DYPLASIA _ HPV - BENGIN History of gynecological procedure (11/20/21) carol iud insertion History of gynecological procedure (10/23/22) carol iud removal Family History Family History Father Family history of malignant neoplasm of bone [place]
[2023-12-10 10:02] LABS: Glucose Point of Care 75 mg/dl (65-105)
[2023-12-10] MEDS: ONDANSETRON INJ 4 MG/2 ML VIAL IV PUSH (10:55)
[2023-12-10 12:19] LABS: Glucose Point of Care 85 mg/dl (65-105)
[2023-12-10] MEDS: OXYTOCIN 30 UNITS/NS 500 ML 30 UNITS/500 ML BAG 125 UNITS IV CONT (13:38)
--- NOTE | 2023-12-10 13:44 | WPDHPUPDATE1 ---
History and Physical Update Update Date/Time: 12/10/23 13:44 History and Physical has been reviewed, including an updated exam of the patient. There are NO changes in the patient's condition. Risks, benefits, and alternatives have been discussed and questions answered. Patient agrees to proceed with procedure.
--- NOTE | 2023-12-10 13:45 | WPDOBADMIT ---
Obstetrics - Admit Note Admission Note: record reviewed. No pertinent additions to the history and/or any subsequent changes in the physical findings that are not consistent with the expected course of the were found. Additions to the history and/or subsequent changes in the physical findings follow. None.
--- NOTE | 2023-12-10 13:45 | PM.OBPRVD ---
OB - Vaginal Delivery Note Procedure Delivery date: 12/10/23 Events: Gestational Diabetes Induction method: AROM Delivery augmentation: Pitocin Delivery monitor: External FHT and External Uterine Route of delivery: Episiotomy description: None Laceration Description: Other ( vulvar) Delivery repair: chromic Specimen: Yes Quantitative Blood Loss (ml): 300 Anesthesia type: Epidural Disposition: Floor Complications: No immediate complications Narrative: patient prepped and draped the usual for this procedure. Maternal expulsive efforts readily delivered vertex and the rest of baby delivered without difficulty. Cord was clamped cut baby was placed on maternal abdomen. Cervix vagina vulva were inspected with right vulvar laceration. This was approximated using 2-0 chromic in a running interlocking manner. Placenta not readily delivered and manual removal was undertaken. Uterus was well contracted, no retained products were noted on bimanual exam. Immediate postoperative condition of mother and baby both excellent. Baby Gestational Age by Date: 39 Infant gender: Female presentation: vertex position: Right Occiput Anterior Placenta delivery description: Manual Removal ( Ancef 3 g given) Cord Vessel Description: 3 Vessels
[2023-12-10] MEDS: ceFAZolin 3 GM/D5W 100 ML 100 ML IVPB (13:58)
[2023-12-10] MEDS: BENZOCAINE 20% AER SPR (*SP) 56 GM CAN 1 SPRAY TOPICAL (16:42)
[2023-12-10] MEDS: WITCH HAZEL 40 PADS 1 PAD TOPICAL (16:42)
--- NOTE | 2023-12-10 17:03 | OBPPTRN ---
Patient transferred to post room #282 via wheelchair. Support person present. Oriented to unit, room, information board, rooming in, admission packet and security measures. Patient verbalizes understanding.
[2023-12-10] MEDS: ACETAMINOPHEN 325 MG TABLET 650 MG PO (17:44)
[2023-12-10] MEDS: ESCITALOPRAM OXALATE 10 MG TABLET 20 MG PO (21:05)
[2023-12-10] MEDS: busPIRone HCL 5 MG TABLET PO (21:06)
[2023-12-10] MEDS: IBUPROFEN 600 MG TABLET PO (21:07)
[2023-12-10] MEDS: ASPIRIN 81 MG ENTERIC TABLET 162 MG PO (21:09)
[2023-12-11 03:00] VITALS: BP 133/80; PULSE 81; RESP 18; TEMP 36.4; O2SAT 98
[2023-12-11 04:41] LABS: Hematocrit 33.3 % (37.0-47.0); Hemoglobin 10.5 g/dL (12.0-15.0)
[2023-12-11] MEDS: DOCUSATE SODIUM 100 MG CAPSULE PO ×2 (07:26→16:38)
[2023-12-11] MEDS: MULTIVIT/MIN/PREN/FOL AC/IRON TABLET 1 TAB PO (07:26)
[2023-12-11] MEDS: WITCH HAZEL 40 PADS 1 PAD TOPICAL (07:27)
[2023-12-11] MEDS: ACETAMINOPHEN 325 MG TABLET 650 MG PO ×2 (07:28→16:38)
[2023-12-11 07:30] VITALS: BP 130/77; PULSE 72; RESP 18; TEMP 36.5; O2SAT 97
--- NOTE | 2023-12-11 08:29 | WPDANLDPN2 ---
Anes-Prog Note L&D Date/Time: 12/11/23 08:29 Comfortable throughout: labor and delivery Neuraxial method: epidural Epidural/Spinal procedure site: clean & non-tender Neuro status: Neuro function grossly intact. Cardiovascular status: normal Respiratory status: normal Airway patency: baseline Mental status: baseline Post-Op hydration status: normal Vital Signs: Last Vital Signs Temp 36.4 C 12/11/23 03:00 Pulse 81 12/11/23 03:00 Resp 18 12/11/23 03:00 BP 133/80 12/11/23 03:00 Pulse Ox 98 12/11/23 03:00 O2 Del Method Room Air 12/11/23 03:00 Pain score (VAS): 0/10 I/O: Intake & Output 12/10/23 12/11/23 12/11/23 23:59 07:59 15:59 Intake Total 140 Balance 140 Post-procedural complaints: none Patient feedback: Patient satisfied with anesthetic care.
--- NOTE | 2023-12-11 10:15 | PC.NURSE ---
Called to room to assist with feeding. Mother had the nipple shield applied correctly and had baby latched, but baby is sleepy and not sucking. We tried to stimulate baby to wake and suck more but she would not give any effort. Since mother has already been trying for a half hour we moved on to pumping. Breast pump provided due to use of the nipple shield. Mom use the nipple shield off and on with her last baby and pumped also. Instructions given on cleaning, care, usage, that there should be no pain, pumping schedule for milk production, collection, and storage of human milk. Patient was assessed for correct placement, flange size, stimulation for adequate milk production every 3 hours (8 times in 24 hours) 1-2 times at night.?Mother voiced understanding of the education shared along with mom/baby guide. If mother gets drops of colostrum, she may put them in baby's mouth or we can use a bottle nipple to feed any volume she gets. If needed, may be supplemented with formula, since she is being monitored for hypoglycemia. Reported to the Primary RN.
[2023-12-11 12:23] VITALS: BP 135/77; PULSE 65; RESP 18; TEMP 36.4; O2SAT 98
--- NOTE | 2023-12-11 16:06 | PM.OBDSVD ---
DS: Admitting Diagnosis Discharge Date 12/12/2023 Admitting Diagnosis OB - DS: Summary OB Procedures : None OB Procedures Intrapartum: Spontaneous Vag Delivery and Retained placenta ( with manual removal/no surgery) OB Procedures: : None Peripartum Data Laceration Description: Other ( vulvar) Episiotomy description: None Time Spent with Patient Time attestation: Total time spent providing and/or coordinating discharge services: DS: Data Data Completed and Pending Pending studies at discharge: Pending at discharge 12/10/23 16:13 Surgical [PTH] Routine Labs on day of discharge: Labs from last 24 hours 12/11/23 03:34 Hgb 10.5 L Hct 33.3 L Discharge Plan Discharge Discharging Clinician: Rajinder Law Patient Disposition: Home, Self-Care Activity: as tolerated Diet: as tolerated Patient Instructions: Antibiotic Form Stand Alone Forms: General Discharge Information Follow-up/Referrals: Rajinder Law MD [Physician] - 3 Weeks Discharge Medications: New ibuprofen 600 mg Tablet 600 mg PO Q6H PRN (Reason: Cramping) Qty: 30 0RF Continued aspirin [Adult Low Dose Aspirin] 81 mg tablet,delayed release (DR/EC) 162 mg PO DAILY #2 Tablet 1 tablet PO DAILY azelaic acid 15 % Gel 1 applic TOPICAL DAILY Rx Instructions: To face buspirone 5 mg tablet 5 mg PO BID Qty: 180 0RF escitalopram oxalate 20 mg tablet 20 mg PO DAILY Qty: 90 1RF Discontinued Novolin N FlexPen 100 unit/mL (3 mL) insulin pen 28 unit subcut QAM Patient Comments: 28 in am / 30 at pm Rx Instructions: Every morning before breakfast Novolin N FlexPen 100 unit/mL (3 mL) insulin pen 30 unit SUBCUT HS Date of admission: 12/10/23 05:53 Primary Care Provider: Michelle Go Admitting Provider: Rajinder Law Attending physician on admission: Rajinder Law Condition: Stable
--- NOTE | 2023-12-11 20:17 | PC.NURSE ---
Patient is off of floor visiting baby in level II nursery from [phone].
[2023-12-11 20:45] VITALS: BP 130/84; PULSE 66; RESP 16; TEMP 36.7; O2SAT 98
[2023-12-11] MEDS: ESCITALOPRAM OXALATE 10 MG TABLET 20 MG PO (21:25)
[2023-12-11] MEDS: busPIRone HCL 5 MG TABLET PO (21:26)
[2023-12-11] MEDS: IBUPROFEN 600 MG TABLET PO (21:27)
[2023-12-11] MEDS: ASPIRIN 81 MG ENTERIC TABLET 162 MG PO (21:27)
[2023-12-12 06:35] VITALS: BP 133/79; PULSE 64; RESP 16; TEMP 36.9; O2SAT 98
[2023-12-12] MEDS: IBUPROFEN 600 MG TABLET PO (06:43)
--- NOTE | 2023-12-12 07:00 | PC.NURSE ---
Patient went to visit with in OB first floor room #111.
[2023-12-12] MEDS: busPIRone HCL 5 MG TABLET PO ×2 (08:42→17:39)
[2023-12-12] MEDS: MULTIVIT/MIN/PREN/FOL AC/IRON TABLET 1 TAB PO (08:42)
[2023-12-12] MEDS: ESCITALOPRAM OXALATE 10 MG TABLET 20 MG PO (17:39)
[2023-12-12] MEDS: ASPIRIN 81 MG ENTERIC TABLET 162 MG PO (17:39)
[2023-12-14 11:15] VITALS: BP 140/79; PULSE 68; RESP 18; TEMP 36.9; O2SAT 96
== END 2023-12-12 17:50 | disposition home or self-care (01) | DRG 807 ==
LOC: ANHLDR 05:56 → ANHOB2 17:07 → ANHOBPP 12-12 07:14
PROVIDERS: Admitting Provider Obstetrics & Gynecology; PCP Family Medicine; Visit Provider Obstetrics & Gynecology
DX: O24.429 Gestational diabetes mellitus in childbirth, unspecified control (principal); Z37.0 Single live birth; Z3A.39 39 weeks gestation of pregnancy; O70.0 First degree perineal laceration during delivery
CPT/HCPCS: 36415; 82948; 85014; 85018; 85025; 86592; 86703; 86850; 86900; 86901; 88307; A9270; G0432; J0690; J2405; J2590; J2795; J7120

== ENCOUNTER 2024-03-06 11:26 | Outpatient (CLI) | payer BC, SELFPAY ==
[2024-03-06 11:58] LABS: Hematocrit 40.7 % (37.0-47.0); Hemoglobin 13.6 g/dL (12.0-15.0); Mean Corpuscular HGB Conc 33.4 g/dl (32-36); Mean Corpuscular Hemoglobin 29.1 pg (26-34); Mean Corpuscular Volume 87.2 fl (80-100); Mean Platelet Volume 10.5 fl (7.4-10.4); Platelet Count Result 263 k/mm3 (150-375); Red Blood Count 4.67 M/mm3 (4.2-5.4); Red Cell Distribution Width 14.6 % (11.5-14.5); White Blood Count 6.9 K/mm3 (4.5-10.0)
== END 2024-03-06 11:27 | disposition home or self-care (01) ==
PROVIDERS: PCP Family Medicine; Visit Provider Obstetrics & Gynecology
DX: Z01.818 Encounter for other preprocedural examination (principal)
CPT/HCPCS: 36415; 85027

== ENCOUNTER 2024-03-13 03:02 | Day surgery (SDC) | payer BC, SELFPAY ==
[2024-03-05 09:10] VITALS: BMI 41.8
--- NOTE | 2024-03-05 09:18 | SUR.PREOP ---
Report to the Outpatient Waiting Room, entrance under the green pavilion located off [facility], at time 10:00a.m. on date 03/13/2024. Planned Procedure Time: 12:00p.m.? Time changes happen often and if your time is changed the preop area will call you the afternoon before. - You and your visitor will be asked to self-screen and do not enter if you have any COVID symptoms. Please call surgeon if you need to reschedule. - A mask is optional within the hospital at this time. Patients may have clear liquids (water, carbonated beverages, clear teas, apple juice) until 3 hours prior to surgery with a maximum of 20 ounces. - No food from midnight until time of surgery and no smoking - Infants may have breast milk until 4 hours before surgery, formula 6 hours prior to surgery. - Children will be allowed to drink immediately following surgery.? If applicable, please bring a bottle or sippy cup to assist with drinking. Juice, water, soda, and popsicles are readily available.? For infants on formula, please bring formula the day of surgery.? Pacifiers are allowed. Take only the following medications with a SIP of water on the morning of surgery: Lexapro, buspirone DO NOT STOP ANY OF YOUR OTHER PRESCRIPTION MEDICATIONS PRIOR TO SURGERY EXCEPT THE FOLLOWING Medications to discontinue per physician Prenatals Date to take last dose 03/10/2024 Please no make-up, nail pakistani, hairspray, perfume, deodorant, or body powder the day of surgery.? No jewelry (including any body piercings) or valuables the day of surgery, leave them at home.? Please take a shower or bath the night before, or the morning of, surgery with an antibacterial soap.? Wear comfortable, loose fitting clothing.? Children are encouraged to wear pajamas. - Jewelry must be removed prior to entering the operating room.? Rings and piercings that are not removed may be cut off. - The hospital will not accept responsibility for valuables.? - Please leave all valuables, including medications, at home the day of surgery. If you are going home after surgery, a licensed experienced truck driver must drive you home.? - NO public transportation without another adult if you receive anesthesia. - We recommend that an adult stay with you for 24 hours following discharge. - We also recommend that you do not drive, make important decision, drink alcoholic beverages, or take any drugs that were not prescribed by your health care provider for at least 24 hours after your discharge time. For Pediatric surgeries, we recommend two adults accompany the child home. Follow any additional instructions given to you from your surgeon. Telephone instructions given to Maria Teresa Petty and asked if any additional questions and then verbalized understanding. Patient advised to call surgeon office or pre surgery nurse liaison [phone] if any additional questions.
--- NOTE | 2024-03-07 16:09 | P.HP_ITS ---
H&P: HPI History of Present Illness Date/Time: 03/07/24 16:09 Chief Complaint: ZAHEER Narrative: desires treatment for ZAHEER at the time of her BTL Review of Systems Review of Systems: All systems reviewed & are unremarkable except as noted in HPI and below PMFSH Past Medical History Medical History Abnormal Pap smear of cervix 12/05/2015- lgsil mild dyplasia +hpv- 12/25/2016 lgsil +hpv Anxiety Depression Encounter for insertion of mirena IUD Encounter for insertion of progestin-releasing intrauterine contraceptive device (IUD) Encounter for IUD removal 12/07/19 Mirena removal Encounter for IUD removal Encounter for screening examination for sexually transmitted disease HPV in female Hx gestational diabetes Lactating mother Obesity induced hypertension Sleep apnea Vrchv-Wlrihkfub-Bugqn (WPW) pattern Surgical History Surgical History History of cardiac radiofrequency ablation (RFA) (~2004) History of colposcopy (01/30/17) BENIGN ENDOCERVERIVAL TISSUE History of colposcopy (01/18/16) LGSIL MILD DYPLASIA _ HPV - BENGIN History of gynecological procedure (11/20/21) carol iud insertion History of gynecological procedure (10/23/22) carol iud removal History of gynecological procedure (01/28/24) mirena iud insertion Family History Family History Father Family history of malignant neoplasm of bone Anxiety Depression Mother Diabetes mellitus Hypertension Obesity Grandparent Heart disease Lung cancer paternal grandmother Sibling Anxiety Obesity Social History Social History Smoking status: Never smoker Second hand tobacco smoke exposure: No Alcohol intake: former Drinks per week: 1 Substance use: never Substance use type: does not use Do You Feel Safe in your Home?: Yes Lack of Transportation: No Lack of Food: Never True Current Housing: I Have Housing Concerned About Future Housing: No Difficulty Paying Gas/Electric Bills: No Difficulty Paying for Meds: No Currently Unemployed: No Education: Trade/Vocational Certificate Difficulty w/ Childcare or Family Care: No Living arrangements: with family Additional living arrangements comments: Occupation/Education: occupation 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 Gender identity (if verbalized by the patient): Female Sexual Orientation (if Verbalized by the Patient): Straight or Heterosexual Spiritual care concerns: No Meds Home Medications and Allergies Home Medications Medication Instructions Recorded Confirmed Type escitalopram oxalate 20 mg tablet 20 mg PO DAILY #90 tabs 11/19/23 03/05/24 Rx azelaic acid 15 % topical gel 1 applic topical DAILY 11/21/23 03/05/24 History prenat.vits,cristine,ayx-upoz-tmceo 1 tablet PO DAILY 11/21/23 03/05/24 History buspirone 5 mg tablet 5 mg PO BID #180 tabs 12/12/23 03/05/24 Rx Allergies Allergy/AdvReac Type Severity Reaction Status Date / Time Penicillins Allergy Unknown Unknown Verified 03/05/24 09:08 Exam Narrative: + urethral mobility Assessment and Plan Assessment and plan (1) ZAHEER (stress urinary incontinence, female): Code(s): N39.3 - Stress incontinence (female) (male) Status: Acute Assessment and Plan: urethral sling
[2024-03-13] VITALS (9 sets, daily range): BP systolic 114–131; BP diastolic 63–88; PULSE 55–71; RESP 12–18; TEMP 36.1; O2SAT 92–100
--- NOTE | 2024-03-13 04:48 | WPDHPUPDATE1 ---
History and Physical Update Update Date/Time: 03/13/24 04:48 History and Physical has been reviewed, including an updated exam of the patient. There are NO changes in the patient's condition. Risks, benefits, and alternatives have been discussed and questions answered. Patient agrees to proceed with procedure.
--- NOTE | 2024-03-13 10:52 | PM.IMHP ---
H&P: HPI History of Present Illness Date/Time: 03/13/24 10:52 34-year-old female presents for sterilization procedure. We have discussed permanence, failure rate, risk of ectopic and regret. Patient strongly desires to proceed with bilateral salpingectomy. Also from complains of urinary incontinence and Dr. Gomes will be proceeding with suburethral sling procedure. Chief Complaint: Undesired fertility Review of Systems Review of Systems: All systems reviewed & are unremarkable except as noted in HPI and below PMFSH Past Medical History Medical History Abnormal Pap smear of cervix 12/05/2015- lgsil mild dyplasia +hpv- 12/25/2016 lgsil +hpv Anxiety Depression Encounter for insertion of mirena IUD Encounter for insertion of progestin-releasing intrauterine contraceptive device (IUD) Encounter for IUD removal 12/07/19 Mirena removal Encounter for IUD removal Encounter for screening examination for sexually transmitted disease HPV in female Hx gestational diabetes Lactating mother Obesity induced hypertension Sleep apnea Oygtv-Mqbvlmiqh-Guniz (WPW) pattern Surgical History Surgical History History of cardiac radiofrequency ablation (RFA) (~2004) History of colposcopy (01/30/17) BENIGN ENDOCERVERIVAL TISSUE History of colposcopy (01/18/16) LGSIL MILD DYPLASIA _ HPV - BENGIN History of gynecological procedure (11/20/21) carol iud insertion History of gynecological procedure (10/23/22) carol iud removal History of gynecological procedure (01/28/24) mirena iud insertion Family History Family History Father Family history of malignant neoplasm of bone Anxiety Depression Mother Diabetes mellitus Hypertension Obesity Grandparent Heart disease Lung cancer paternal grandmother Sibling Anxiety Obesity Social History Social History Smoking status: Never smoker Second hand tobacco smoke exposure: No Alcohol intake: former Drinks per week: 1 Substance use: never Substance use type: does not use Do You Feel Safe in your Home?: Yes Lack of Transportation: No Lack of Food: Never True Current Housing: I Have Housing Concerned About Future Housing: No Difficulty Paying Gas/Electric Bills: No Difficulty Paying for Meds: No Currently Unemployed: No Education: Trade/Vocational Certificate Difficulty w/ Childcare or Family Care: No Living arrangements: with family Additional living arrangements comments: Occupation/Education: occupation 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 Gender identity (if verbalized by the patient): Female Sexual Orientation (if Verbalized by the Patient): Straight or Heterosexual Spiritual care concerns: No Meds Home Medications and Allergies Home Medications Medication Instructions Recorded Confirmed Type escitalopram oxalate 20 mg tablet 20 mg PO DAILY #90 tabs 11/19/23 03/05/24 Rx azelaic acid 15 % topical gel 1 applic topical DAILY 11/21/23 03/05/24 History prenat.vits,cristine,alh-kwnu-zajnn 1 tablet PO DAILY 11/21/23 03/05/24 History buspirone 5 mg tablet 5 mg PO BID #180 tabs 12/12/23 03/05/24 Rx Allergies Allergy/AdvReac Type Severity Reaction Status Date / Time Penicillins Allergy Unknown Unknown Verified 03/05/24 09:08 Exam Const: General: cooperative, healthy appearing and comfortable Resp: Effort & Inspection: normal respiratory effort Auscultation: clear to auscultation bilaterally Cardio: Rate: regular rate Rhythm: regular rhythm GI: Inspection: normal to inspection Auscultation: normal bowel sounds : External Female Exam: normal external appearance Speculum Exam - Vagina: normal appearance of the vagina Speculum Exam - Cervix: normal appearance of the cervix Bimanual exam- vagina & uterus: normal bimanual exam Bimanual Exam- Adnexa, other: normal adnexae Assessment and Plan Assessment and plan (1) Encounter for female sterilization procedure: Code(s): Z30.2 - Encounter for sterilization Status: Acute (2) ZAHEER (stress urinary incontinence, female): Code(s): N39.3 - Stress incontinence (female) (male) Status: Acute Plan proceed with laparoscopic bilateral salpingectomy
--- NOTE | 2024-03-13 10:55 | WPDHPUPDATE1 ---
History and Physical Update Update Date/Time: 03/13/24 10:55 History and Physical has been reviewed, including an updated exam of the patient. There are NO changes in the patient's condition. Risks, benefits, and alternatives have been discussed and questions answered. Patient agrees to proceed with procedure.
[2024-03-13] MEDS: KETOROLAC 15 MG/ML VIAL (*BKC) IV PUSH (11:00)
[2024-03-13] MEDS: ACETAMINOPHEN 500 MG TABLET 1000 MG PO (11:00)
--- NOTE | 2024-03-13 11:43 | P.PNAN_ITS ---
Anes - Initial Pre Proc Eval Procedure: Operation Date: 03/13/24 12:00 Proposed Procedures p Laparoscopic Bilateral Salpingectomy - Rajinder Law MD s Urethral Sling - Fidencio Gomes MD Date/Time: 03/13/24 11:43 Surgeon: Rajinder Law MD Pre Op Diagnosis: desires sterilization, Stress Incont Patient Data Age: 34 Gender: F Height: 1.73 m Weight: 123.6 kg Last Vital Signs Temp 36.1 C L 03/13/24 10:40 Pulse 57 L 03/13/24 10:40 Resp 16 03/13/24 10:40 BP 126/76 03/13/24 10:40 Pulse Ox 97 03/13/24 10:40 O2 Del Method Room Air 03/13/24 10:40 Allergies Allergy/AdvReac Type Severity Reaction Status Date / Time Penicillins Allergy Unknown Unknown Verified 03/05/24 09:08 Home Medications Medication Instructions Recorded Confirmed Type escitalopram oxalate 20 mg tablet 20 mg PO DAILY #90 tabs 11/19/23 03/05/24 Rx azelaic acid 15 % topical gel 1 applic topical DAILY 11/21/23 03/05/24 History prenat.vits,cristine,esv-dtrt-twtbg 1 tablet PO DAILY 11/21/23 03/05/24 History buspirone 5 mg tablet 5 mg PO BID #180 tabs 12/12/23 03/05/24 Rx Patient hx anesthesia problems: post op nausea/vomiting Family hx anesthesia problems: none Results Review: All pre-operative results and documents have been reviewed as part of the pre- operative evaluation. [facility] Past Medical History Medical History Abnormal Pap smear of cervix 12/05/2015- lgsil mild dyplasia +hpv- 12/25/2016 lgsil +hpv Anxiety Depression Encounter for insertion of mirena IUD Encounter for insertion of progestin-releasing intrauterine contraceptive device (IUD) Encounter for IUD removal 12/07/19 Mirena removal Encounter for IUD removal Encounter for screening examination for sexually transmitted disease HPV in female Hx gestational diabetes Lactating mother Obesity induced hypertension Sleep apnea Tztxi-Amouqvcnd-Dscwm (WPW) pattern Surgical History Surgical History History of cardiac radiofrequency ablation (RFA) (~2004) History of colposcopy (01/30/17) BENIGN ENDOCERVERIVAL TISSUE History of colposcopy (01/18/16) LGSIL MILD DYPLASIA _ HPV - BENGIN History of gynecological procedure (11/20/21) carol iud insertion History of gynecological procedure (10/23/22) carol iud removal History of gynecological procedure (01/28/24) mirena iud insertion Family History Family History Father Family history of malignant neoplasm of bone Anxiety Depression Mother Diabetes mellitus Hypertension Obesity Grandparent Heart disease Lung cancer paternal grandmother Sibling Anxiety Obesity Social History Social History Smoking status: Never smoker Second hand tobacco smoke exposure: No Alcohol intake: former Drinks per week: 1 Substance use: never Substance use type: does not use Do You Feel Safe in your Home?: Yes Lack of Transportation: No Lack of Food: Never True Current Housing: I Have Housing Concerned About Future Housing: No Difficulty Paying Gas/Electric Bills: No Difficulty Paying for Meds: No Currently Unemployed: No Education: Trade/Vocational Certificate Difficulty w/ Childcare or Family Care: No Living arrangements: with family Additional living arrangements comments: Occupation/Education: occupation 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 Gender identity (if verbalized by the patient): Female Sexual Orientation (if Verbalized by the Patient): Straight or Heterosexual Spiritual care concerns: No Anes - Eval Final PreProcedure Day of Procedure 03/13/24 11:43 Patient weight: morbidly obese Heart: regular rate and rhythm Lungs: clear to auscultation Airway: Mallampati scale class II Neurological: alert and oriented Last oral intake: >/= 8 hours ASA classification: III Emergent: no Anesthetic plan: proceed Anesthesia type and monitoring: general ETT and standard monitoring Results Review: All pre-operative results and documents have been reviewed as part of the pre- operative evaluation. Informed Consent: The patient's anesthetic plan and its attendant risks and benefits were discussed with the patient/family/POA. Questions were solicited and answers provided to the satisfaction of the patient/family/POA.
[2024-03-13] MEDS: ceFAZolin 3 GM/D5W 100 ML 100 ML IVPB (12:02)
[2024-03-13] MEDS: BUPIVACAINE/EPINEPHRINE 0.5% 50 ML VIAL INFILTRATE (12:27)
--- NOTE | 2024-03-13 12:34 | SUR.OPER ---
Dr. Law finished his portion of the procedure and left the room at 1233.
--- NOTE | 2024-03-13 12:39 | W.PM.PROC2 ---
Procedure Note - Detailed Date of Procedure 03/13/24 Pre-op Diagnosis desires sterilization, Stress Incont Post-op Diagnosis Same Procedure Performed Bilateral laparoscopic salpingectomy Surgeon Rajinder Law MD Anesthesia General Findings uterus tubes ovaries without abnormality Description of Procedure patient prepped draped usual manner for this procedure. Cervical instruments were placed for uterine mobility. Abdominal trocar sites were placed under direct visualization. bilaterally mesial salpinx was cauterized and cut and both tubes removed without difficulty. There was no bleeding. Gas was allowed to escape, trocars removed, incisions approximated using 4-0 Monocryl. Estimated Blood Loss 10 Drains No Packing No Pathology Yes Complications No immediate complications Condition Stable Disposition PACU [facility] Billing Surgery - Charge Forward: Surgery Billing
--- NOTE | 2024-03-13 12:49 | SUR.OPER ---
Second time-out for Dr. Gomes performed at 2289
--- NOTE | 2024-03-13 13:11 | W.PM.PROC2 ---
Procedure Note - Detailed Date of Procedure 03/13/24 Pre-op Diagnosis This incontinence Post-op Diagnosis Same Procedure Performed mid urethral sling cystoscopy Surgeon Fidencio Gomes MD Anesthesia General Indications This is a female with confirm stress urinary incontinence. She desires surgical correction. She understands the risks of bleeding, infection, injury to the urinary tract, vaginal mesh extrusion, urinary tract mesh erosion, obstructive voiding requiring a secondary procedure, hip and leg pain, dyspareunia, inability to improve overactive bladder symptoms. She agrees to proceed. I am doing this in combination with a bilateral salpingectomy for sterilization Description of Procedure I entered the operating room after her salpingectomy. I re-prepped the drape the patient in a sterile fashion. A time-out performed. Carcamo catheter was placed. I marked out the site of the inner thigh incisions. I anesthetized the skin and made those incisions. I anesthetized the anterior vaginal wall over the mid urethra. I made a 1 cm incision. I dissected out laterally taking great care not to injure the refilled vaginal wall. I passed the helical trocars. First on the left. Then on the right. I did this from the thigh incision towards the vaginal incision. Trocar passage was somewhat more difficult due to body habitus.The sling was connected to the trocars and brought out through the thigh incision. I tensioned the sling appropriately. I cut and the plastic sheaths. I then closed the incision with 2 0 Vicryl. On cystoscopy there is no tumors or surgical artifact. There was no surgical artifact in the urethra. I cut the excess sling material. Close incisions with glue. She was awakened and transferred to the PACU in stable condition. Implants Urethral sling Estimated Blood Loss 30 Drains No Packing No Pathology None sent Complications No immediate complications Condition Stable Disposition PACU
[2024-03-13] MEDS: LACTATED RINGERS 1,000 ML 30 ML IV CONT ×2 (13:13)
[2024-03-13] MEDS: oxyCODONE HCL (*CRX) 5 MG TAB IR PO (14:41)
== END 2024-03-13 15:15 | disposition home or self-care (01) ==
PROVIDERS: Urology; PCP Family Medicine; Visit Provider Obstetrics & Gynecology
PROC: (CPT 49320; principal; 2024-03-13 12:00)
PROC: (CPT 57288; 2024-03-13 12:00)
DX: Z30.2 Encounter for sterilization (principal); N39.3 Stress incontinence (female) (male); N83.8 Other noninflammatory disorders of ovary, fallopian tube and broad ligament; G89.18 Other acute postprocedural pain; F41.9 Anxiety disorder, unspecified; F32.A Depression, unspecified; G47.30 Sleep apnea, unspecified; I45.6 Pre-excitation syndrome; E66.01 Morbid (severe) obesity due to excess calories; Z68.41 Body mass index [BMI] 40.0-44.9, adult; Z98.890 Other specified postprocedural states; Z86.79 Personal history of other diseases of the circulatory system; Z80.8 Family history of malignant neoplasm of other organs or systems; Z80.1 Family history of malignant neoplasm of trachea, bronchus and lung; Z82.49 Family history of ischemic heart disease and other diseases of the circulatory system
CPT/HCPCS: 58661; 57288; 88302; A9270; C1771; J0330; J0690; J1100; J1885; J2250; J2405; J2704; J7120

== ENCOUNTER 2025-01-04 08:32 | Outpatient (CLI) | payer BC, SELFPAY ==
--- NOTE | ~2025-01-04 | US_ITS ---
US right upper quadrant INDICATION: Elevated liver function tests. PROCEDURE: Realtime right upper abdominal ultrasound. COMPARISON: No prior studies for comparison. FINDINGS: The pancreas is normal without focal mass or pancreatic ductal dilation. Liver echotexture is diffusely increased, consistent with fatty infiltration. There is normal directional flow in the portal vein. The gallbladder is normal without stones, gallbladder wall thickening or pericholecystic fluid. Common bile duct measures 4 mm. No sonographic Ponce's sign. IMPRESSION: 1: Fatty infiltration of the liver. Reviewed, dictated and finalized at location O.
== END 2025-01-04 08:33 | disposition home or self-care (01) ==
LOC: MICIMG 08:33
PROVIDERS: PCP Family Medicine; Visit Provider Family Medicine
DX: K76.0 Fatty (change of) liver, not elsewhere classified (principal); R74.01 Elevation of levels of liver transaminase levels
CPT/HCPCS: 76705